=== PATIENT | female | born 1950 | race Caucasian/White ===

== ENCOUNTER 2018-02-27 07:00 | Inpatient (IN) | payer OTHER, MEDICARE ==
[~2018-02-27] VITALS: Ht 165.1 cm; Wt 129.0 kg
[2018-02-27] MEDS ORDERED: SODIUM CHLORIDE 0.9% 1,000ML IV ONE (07:30)
[2018-02-27] MEDS ORDERED: SODIUM CHLORIDE FLUSH 10ML SYR IVF ONE (07:30)
[2018-02-27] MEDS ORDERED: INSU100I32 IM (08:09)
[2018-02-27] MEDS ORDERED: OLME40TA12 PO (08:09)
[2018-02-27] MEDS ORDERED: ATOR-2 PO (08:09)
[2018-02-27] MEDS ORDERED: HYDR-3342 PO (08:09)
[2018-02-27] MEDS ORDERED: AMLO10TA6 PO (08:09)
[2018-02-27 08:35] LABS: ALANINE AMINOTRANSFERASE 17 U/L (12-78); ALBUMIN 3.1 g/dL (3.4-5.0); ANION GAP 10 mmol/L (5-15); CHLORIDE 107 mmol/L (98-107); CREATININE 2.12 mg/dL (0.55-1.02)
[2018-02-27 08:37] LABS: ALKALINE PHOSPHATASE 111 U/L (45-117); BILIRUBIN,TOTAL 0.3 mg/dL (0.2-1.0); TOTAL PROTEIN 7.1 g/dL (6.4-8.2)
[2018-02-27 08:38] LABS: BASOPHILS # (AUTO) 0.01 x10^3/uL (0-0.1); BASOPHILS % (AUTO) 0 % (0-1); EOSINOPHILS % (AUTO) 1 % (1-7); LYMPHOCYTES # (AUTO) 1.58 x10^3/uL (1-3.4); LYMPHOCYTES % (AUTO) 11 % (22-44); MD NO; MEAN CORPUSCULAR HEMOGLOBIN 29.4 pg (27.0-34.8); MEAN CORPUSCULAR HGB CONC 33.8 g/dL (32.4-35.8); MEAN PLATELET VOLUME 7.8 fL (7.4-10.4); MONOCYTES % (AUTO) 3 % (2-9); NEUTROPHILS # (AUTO) 12.18 x10^3/uL (1.8-6.8); NEUTROPHILS % (AUTO) 85 % (42-75); PLATELET COUNT 335 x10^3/uL (130-400); RED BLOOD COUNT 4.54 x10^6/uL (3.82-5.3)
[2018-02-27 09:39] LABS: CLOSTRIDIUM DIFFICILE ANTIGEN POSITIVE; CLOSTRIDIUM DIFFICILE TOXIN POSITIVE (Negative)
[2018-02-27 10:18] LABS: CULTURE INDICATED? YES; MICROSCOPIC INDICATED
[2018-02-27] MEDS ORDERED: SODIUM CHLORIDE FLUSH 10ML SYR IVF PRN (11:00)
[2018-02-27] MEDS ORDERED: SODIUM CHLORIDE 0.9% 1,000 ML IV ONE (11:00)
[2018-02-27 11:30] VITALS: BP 122/66
[2018-02-27] MEDS ORDERED: ONDANSETRON 2MG/ML, 2ML IVPush PRN (11:30)
[2018-02-27] MEDS ORDERED: LABETALOL 5MG/ML, 20ML IVPush PRN (11:30)
[2018-02-27] MEDS: INSULIN LISPRO 100 UNITS/ML, PEN SQ-INSULIN SCH ×3 (11:30→21:00)
[2018-02-27] MEDS: SODIUM CHLORIDE 0.9% 1,000 ML IV SCH ×2 (11:50→18:40)
[2018-02-27] MEDS: VANCOMYCIN 50 MG/ML ORAL SUSP PO SCH ×3 (12:16→23:21)
[2018-02-27 13:56] LABS: HEMOGLOBIN A1C 7.7 % (4.2-6.3)
[2018-02-27] MEDS: HEPARIN 5,000 UNITS/ML, 1ML SQ SCH (17:36)
[2018-02-27 19:25] VITALS: BP 117/71
[2018-02-27] MEDS: ATORVASTATIN 20 MG TABLET PO SCH (21:08)
[2018-02-28] MEDS: HEPARIN 5,000 UNITS/ML, 1ML SQ SCH ×3 (00:45→16:54)
[2018-02-28] MEDS: SODIUM CHLORIDE 0.9% 1,000 ML IV SCH ×3 (00:46→19:00)
[2018-02-28 00:51] VITALS: BP 116/69
[2018-02-28] MEDS: VANCOMYCIN 50 MG/ML ORAL SUSP PO SCH ×4 (05:34→23:53)
[2018-02-28 06:00] LABS: ALBUMIN 2.7 g/dL (3.4-5.0); ANION GAP 10 mmol/L (5-15); CALCIUM 7.6 mg/dL (8.5-10.1); CHLORIDE 113 mmol/L (98-107)
[2018-02-28 06:04] LABS: ALANINE AMINOTRANSFERASE 14 U/L (12-78); ALKALINE PHOSPHATASE 91 U/L (45-117); BILIRUBIN,TOTAL 0.3 mg/dL (0.2-1.0); CREATININE 1.62 mg/dL (0.55-1.02); TOTAL PROTEIN 6.3 g/dL (6.4-8.2)
[2018-02-28 06:50] LABS: BASOPHILS # (AUTO) 0.09 x10^3/uL (0-0.1); BASOPHILS % (AUTO) 1 % (0-1); EOSINOPHILS % (AUTO) 3 % (1-7); LYMPHOCYTES # (AUTO) 1.88 x10^3/uL (1-3.4); LYMPHOCYTES % (AUTO) 21 % (22-44); MD NO; MEAN CORPUSCULAR HEMOGLOBIN 29.4 pg (27.0-34.8); MEAN CORPUSCULAR HGB CONC 33.9 g/dL (32.4-35.8); MEAN CORPUSCULAR VOLUME 86.8 fL (80-100); MEAN PLATELET VOLUME 7.9 fL (7.4-10.4); MONOCYTES # (AUTO) 0.51 x10^3/uL (0.2-0.8); MONOCYTES % (AUTO) 6 % (2-9); NEUTROPHILS # (AUTO) 6.25 x10^3/uL (1.8-6.8); NEUTROPHILS % (AUTO) 69 % (42-75); PLATELET COUNT 275 x10^3/uL (130-400); RED BLOOD COUNT 4.15 x10^6/uL (3.82-5.3); RED CELL DISTRIBUTION WIDTH 13.9 % (9.6-15.2)
[2018-02-28 06:58] VITALS: BP 112/70
[2018-02-28] MEDS: INSULIN LISPRO 100 UNITS/ML, PEN SQ-INSULIN SCH ×4 (08:03→20:31)
[2018-02-28] MEDS: AMLODIPINE 10 MG TAB PO SCH (09:31)
[2018-02-28 12:10] LABS: MICROSCOPIC AUTO
[2018-02-28 12:18] LABS: CULTURE INDICATED? YES
[2018-02-28 13:23] VITALS: BP 148/74
[2018-02-28 18:34] VITALS: BP 138/75
[2018-02-28] MEDS: ATORVASTATIN 20 MG TABLET PO SCH (20:31)
[2018-03-01 01:27] VITALS: BP 127/73
[2018-03-01 05:35] LABS: BASOPHILS # (AUTO) 0.07 x10^3/uL (0-0.1); BASOPHILS % (AUTO) 1 % (0-1); EOSINOPHILS # (AUTO) 0.26 x10^3/uL (0-0.4); EOSINOPHILS % (AUTO) 3 % (1-7); LYMPHOCYTES # (AUTO) 1.42 x10^3/uL (1-3.4); LYMPHOCYTES % (AUTO) 17 % (22-44); MD NO; MEAN CORPUSCULAR HEMOGLOBIN 29.3 pg (27.0-34.8); MEAN CORPUSCULAR HGB CONC 33.8 g/dL (32.4-35.8); MEAN CORPUSCULAR VOLUME 86.5 fL (80-100); MEAN PLATELET VOLUME 7.5 fL (7.4-10.4); MONOCYTES # (AUTO) 0.48 x10^3/uL (0.2-0.8); MONOCYTES % (AUTO) 6 % (2-9); NEUTROPHILS # (AUTO) 6.03 x10^3/uL (1.8-6.8); NEUTROPHILS % (AUTO) 73 % (42-75); PLATELET COUNT 269 x10^3/uL (130-400); RED BLOOD COUNT 4.06 x10^6/uL (3.82-5.3); RED CELL DISTRIBUTION WIDTH 13.9 % (9.6-15.2)
[2018-03-01] MEDS: HEPARIN 5,000 UNITS/ML, 1ML SQ SCH ×2 (05:39→13:30)
[2018-03-01] MEDS: VANCOMYCIN 50 MG/ML ORAL SUSP PO SCH ×2 (05:39→11:44)
[2018-03-01 05:47] LABS: ALANINE AMINOTRANSFERASE 14 U/L (12-78); ALBUMIN 2.5 g/dL (3.4-5.0); ANION GAP 10 mmol/L (5-15); CALCIUM 7.5 mg/dL (8.5-10.1); CHLORIDE 115 mmol/L (98-107)
[2018-03-01 05:50] LABS: ALKALINE PHOSPHATASE 93 U/L (45-117); BILIRUBIN,TOTAL 0.2 mg/dL (0.2-1.0); CREATININE 1.43 mg/dL (0.55-1.02); TOTAL PROTEIN 6.4 g/dL (6.4-8.2)
[2018-03-01] MEDS: INSULIN LISPRO 100 UNITS/ML, PEN SQ-INSULIN SCH ×2 (07:00→11:00)
[2018-03-01] MEDS: SODIUM CHLORIDE 0.9% 1,000 ML IV SCH (08:28)
[2018-03-01] MEDS: AMLODIPINE 10 MG TAB PO SCH (08:28)
[2018-03-01] MEDS ORDERED: SODIUM BICARBONATE 650 MG TABLET PO SCH (09:00)
[2018-03-01 09:41] VITALS: BP 151/80
[2018-03-01] MEDS ORDERED: SODIUM CHLORIDE 0.9% 1,000 ML IV SCH (11:12)
[2018-03-01 12:36] VITALS: BP 114/72
[2018-03-01] MEDS ORDERED: VANC1VIA3 PO (15:25)
[2018-03-01] MEDS ORDERED: SODI650T PO (15:25)
== END 2018-03-01 16:39 | disposition home or self-care (01) | DRG 372 ==
LOC: ED 08:47 → EDIP 09:50 → 3NE 10:35
PROVIDERS: ADMIT Hospitalist; ATTEND Hospitalist
DX: A04.72 Enterocolitis due to Clostridium difficile, not specified as recurrent (principal); E44.1 Mild protein-calorie malnutrition; E87.2 Acidosis; Z68.42 Body mass index [BMI] 45.0-49.9, adult; N17.9 Acute kidney failure, unspecified; N39.0 Urinary tract infection, site not specified; E66.01 Morbid (severe) obesity due to excess calories; E11.22 Type 2 diabetes mellitus with diabetic chronic kidney disease; E11.65 Type 2 diabetes mellitus with hyperglycemia; I12.9 Hypertensive chronic kidney disease with stage 1 through stage 4 chronic kidney disease, or unspecified chronic kidney disease; E78.5 Hyperlipidemia, unspecified; N18.9 Chronic kidney disease, unspecified; Z83.3 Family history of diabetes mellitus
CPT/HCPCS: 36415; 74021; 99285; J3370; 80053; 81001; 82962; 83036; 83605; 83735; 85025; 87077; 87086; 87186; 87324; 89055; 93005; G0378; J1644; J1815; J7030